=== PATIENT | female | born 1955 | race Two or more races ===

== ENCOUNTER 2019-07-31 14:27 | Inpatient (IN) | payer SELFPAY ==
[~2019-07-31] VITALS: Ht 157.5 cm; Wt 67.0 kg
[2019-07-31] MEDS ORDERED: SODIUM CHLORIDE 0.9% 1,000 ML IVB ONE (15:21)
[2019-07-31 16:28] LABS: Basophils # (auto) 0 10 ^3/uL (0-0.2); Basophils % (auto) 0.2 % (0.0-2.0); Eosinophils # (auto) 0 10 ^3/uL (0-0.8); Eosinophils % (auto) 0.2 % (0.0-7.0); Hematocrit 39.3 % (36.0-46.0); Hemoglobin 13.4 g/dL (12.2-16.2); Lymphocytes # (auto) 0.9 10 ^3/uL (0.4-5.4); Lymphocytes % (auto) 6.5 % (10.0-50.0); Mean Corpuscular Hemoglobin 30.2 pg (28.0-32.0); Mean Corpuscular Hgb Conc. 34.1 g/dL (32.0-36.0); Mean Corpuscular Volume 88.8 fL (80.0-100.0); Monocytes # (auto) 0.9 10 ^3/uL (0-1.3); Monocytes % (auto) 6.6 % (0.0-12.0); Neutrophils # (auto) 11.8 10 ^3/uL (1.6-8.6); Neutrophils % (auto) 86.5 % (37.0-80.0); Platelet Count (auto) 337 10^3/uL (140-450); Red Blood Cells 4.43 10^6/uL (4.0-5.20); Red Cell Distribution Width 13.1 % (11.8-14.3); White Blood Cell 13.7 10^3/uL (4.4-10.8)
[2019-07-31] MEDS ORDERED: AZITHROMYCIN 500MG/ 250ML 250 ML IV ONE (16:30)
[2019-07-31 16:47] LABS: Alanine Aminotransferase 8 U/L (13-56); Albumin 2.4 g/dL (3.4-5.0); Anion Gap 11 (5-15); Aspartate Aminotransferase 28 U/L (15-37); BUN/Creatinine Ratio 9.5; Blood Urea Nitrogen 6 mg/dL (7-18); Calcium 8.9 mg/dL (8.5-10.1); Carbon Dioxide 23 mmol/L (21-32); Chloride 95 mmol/L (98-107); GFR African American 123 mL/min; GFR Non-African American 101 mL/min; Glucose 100 mg/dL (74-106); Magnesium 2.2 mg/dL (1.6-2.6); Sodium 129 mmol/L (136-145)
[2019-07-31 16:52] LABS: Alkaline Phosphatase 114 U/L (45-117); Bilirubin, Total 0.5 mg/dL (0.2-1.0); Lactic Acid w/Reflex 2.5 mmol/L (0.4-2.0); Total Protein 7.2 g/dL (6.4-8.2)
[2019-07-31 17:08] LABS: INR 1.07 (0.9-1.15); Partial Thromboplastin Time 27.4 sec (23.64-32.05)
[2019-07-31] MEDS ORDERED: SODIUM CHLORIDE 0.9% 1,950 ML IV ONE (17:15)
[2019-07-31] MEDS ORDERED: POTASSIUM CHL 20MEQ/100ML 100 ML IV ONE (17:15)
[2019-07-31] MEDS ORDERED: FUROSEMIDE 100 MG/10ML VIAL IV ONE (17:15)
[2019-07-31] MEDS ORDERED: NITROGLYCERIN 0.4 MG SL TAB SL PRN (17:15)
[2019-07-31] MEDS ORDERED: VANCOMYCIN PER PHARMACY 0 MG IV SCH (17:15)
[2019-07-31] MEDS ORDERED: MORPHINE SULF INJ 2 MG/ML SYRINGE 1ML IV PRN (17:15)
[2019-07-31] MEDS ORDERED: CALCIUM CHL 100MG/ML 500 MG in D5W 5% 100 ML IV ONE (17:45)
[2019-07-31] MEDS ORDERED: VANCOMYCIN 1GM/250ML 250 ML IV SCH (19:00)
[2019-07-31 19:30] VITALS: BP 158/87
[2019-07-31] MEDS: HYDROCORTISONE SOD SUCC 100 MG/2ML INJ VIAL IV SCH ×2 (19:48→23:41)
[2019-07-31 20:00] VITALS: BP 158/87
[2019-07-31] MEDS ORDERED: AMLO5TAB15 PO (21:03)
[2019-07-31] MEDS ORDERED: ACLI1AER2 IN (21:03)
[2019-07-31] MEDS ORDERED: ASPI-404 PO (21:03)
[2019-07-31] MEDS ORDERED: DEXTROSE (50%) 50ML SYRG IV PRN (21:30)
[2019-07-31] MEDS: InsuLIN REG 1unit/0.01ml Soln (100units/ml) SC SCH (22:00)
[2019-07-31] MEDS: SOD CHL 0.9%/ KCL 40MEQ 1,000 ML IV SCH (22:12)
[2019-07-31] MEDS: MEROPENEM 1GM IVPB 100 ML IV SCH (22:24)
[2019-07-31] MEDS: FAMOTIDINE (10MG/ML) 2ML VL IV SCH (22:24)
[2019-07-31 22:35] VITALS: BP 150/93
[2019-07-31] MEDS: ACCU-CHEK COMFORT CURVE STRIP VI SCH (23:13)
[2019-07-31] MEDS ORDERED: PRAV20TA3 PO (23:18)
[2019-07-31 23:23] LABS: Urine Amorphous Crystal FEW /hpf (None Seen); Urine Bacteria FEW /hpf (None Seen); Urine Blood Negative /uL (Negative); Urine Specific Gravity 1.003 (1.001-1.035); Urine WBC 1 /hpf (0 - 5)
[2019-07-31] MEDS: MAGNESIUM SULFATE 1GM/100ML 100 ML IV ONE (23:41)
[2019-08-01] VITALS (10 sets, daily range): BP systolic 136–172; BP diastolic 76–101
[2019-08-01] MEDS ORDERED: VANCOMYCIN 1GM/250ML 250 ML IV SCH
[2019-08-01] MEDS: MAGNESIUM SULFATE 1GM/100ML 100 ML IV ONE (00:33)
[2019-08-01] MEDS: SOD CHL 0.9%/ KCL 40MEQ 1,000 ML IV SCH ×2 (01:35→10:05)
[2019-08-01] MEDS: FUROSEMIDE 100 MG/10ML VIAL IV SCH ×2 (06:00→17:30)
[2019-08-01 06:32] LABS: Basophils # (auto) 0.1 10 ^3/uL (0-0.2); Basophils % (auto) 0.6 % (0.0-2.0); Eosinophils # (auto) 0 10 ^3/uL (0-0.8); Hematocrit 34.8 % (36.0-46.0); Hemoglobin 11.7 g/dL (12.2-16.2); Lymphocytes # (auto) 0.6 10 ^3/uL (0.4-5.4); Lymphocytes % (auto) 5.1 % (10.0-50.0); Mean Corpuscular Hemoglobin 29.5 pg (28.0-32.0); Mean Corpuscular Hgb Conc. 33.6 g/dL (32.0-36.0); Mean Corpuscular Volume 87.9 fL (80.0-100.0); Monocytes # (auto) 0.3 10 ^3/uL (0-1.3); Monocytes % (auto) 2.5 % (0.0-12.0); Neutrophils # (auto) 11.3 10 ^3/uL (1.6-8.6); Neutrophils % (auto) 91.8 % (37.0-80.0); Platelet Count (auto) 322 10^3/uL (140-450); Red Blood Cells 3.96 10^6/uL (4.0-5.20); White Blood Cell 12.3 10^3/uL (4.4-10.8)
[2019-08-01 06:43] LABS: INR 1.07 (0.9-1.15); Partial Thromboplastin Time 26.8 sec (23.64-32.05)
[2019-08-01 06:47] LABS: Albumin 2.1 g/dL (3.4-5.0); Anion Gap 9 (5-15); Blood Urea Nitrogen 4 mg/dL (7-18); Calcium 8.1 mg/dL (8.5-10.1); Carbon Dioxide 23 mmol/L (21-32); Chloride 103 mmol/L (98-107); Glucose 128 mg/dL (74-106); Magnesium 2.3 mg/dL (1.6-2.6); Potassium 3.3 mmol/L (3.5-5.1); Sodium 135 mmol/L (136-145)
[2019-08-01 06:53] LABS: Ferritin 880.1 ng/mL (10-322)
[2019-08-01 06:54] LABS: Folate (Folic Acid) 5.68 ng/mL (5.38-24)
[2019-08-01] MEDS: ACCU-CHEK COMFORT CURVE STRIP VI SCH ×4 (06:54→22:54)
[2019-08-01] MEDS: HYDROCORTISONE SOD SUCC 100 MG/2ML INJ VIAL IV SCH (06:54)
[2019-08-01] MEDS: MEROPENEM 1GM IVPB 100 ML IV SCH (06:54)
[2019-08-01] MEDS: InsuLIN REG 1unit/0.01ml Soln (100units/ml) SC SCH ×4 (06:54→22:53)
[2019-08-01 06:55] LABS: Alanine Aminotransferase 7 U/L (13-56); Alkaline Phosphatase 104 U/L (45-117); Aspartate Aminotransferase 23 U/L (15-37); BUN/Creatinine Ratio 8.9; Bilirubin, Total 0.4 mg/dL (0.2-1.0); Cholesterol 186 mg/dL (< 200); Creatine Kinase IFCC 23 U/L (26-192); GFR African American 181 mL/min; GFR Non-African American 150 mL/min; HDL Cholesterol 25 mg/dL (40-59); LDL Cholesterol 125 mg/dL (< 100); Lactate Dehydrogenase 307 U/L (84-246); Phosphorus 2.1 mg/dL (2.5-4.90); Total Protein 6.6 g/dL (6.4-8.2); Triglycerides 159 mg/dL (< 150); Uric Acid 3.9 mg/dL (2.6-6.0)
[2019-08-01] MEDS: FAMOTIDINE (10MG/ML) 2ML VL IV SCH ×2 (10:05→22:54)
[2019-08-01] MEDS: amLODIPine BESYLATE 5 MG TAB PO SCH (10:06)
[2019-08-01] MEDS: ENOXAPARIN SOD 40 MG/0.4 ML SYRINGE SC SCH (10:07)
[2019-08-01] MEDS ORDERED: ASCORBIC ACID 500 MG TAB PO ONE (10:45)
[2019-08-01] MEDS ORDERED: POTASSIUM CHL 20 Meq TABLET PO ONE (10:45)
[2019-08-01] MEDS ORDERED: OSELTAMIVIR 75 MG CAP PO ONE (10:45)
[2019-08-01] MEDS ORDERED: AZITHROMYCIN 250 MG TAB PO ONE (10:45)
[2019-08-01] MEDS ORDERED: ZINC SULFATE 220mg CAP or TAB PO ONE (10:45)
[2019-08-01] MEDS ORDERED: cefTRIAXone 1GM/50ML D5W 50 ML IV ONE (10:45)
[2019-08-01] MEDS ORDERED: IBUP200C95 PO (11:52)
[2019-08-01] MEDS ORDERED: ALBUAER3 IN (11:56)
[2019-08-01] MEDS: IPRATROPIUM BROM 0.5 MG/2.5ML INH SOL NEB SCH (18:22)
[2019-08-01] MEDS: ALBUTEROL SULF 2.5 MG/0.5ML(0.5%) NEB SOLN NEB SCH (18:22)
[2019-08-01] MEDS: METOPROLOL TARTRATE 25 MG TAB PO SCH (22:00)
[2019-08-01] MEDS ORDERED: ATORVASTATIN 20 MG TAB PO SCH (22:00)
[2019-08-01] MEDS: OSELTAMIVIR 75 MG CAP PO SCH (22:54)
[2019-08-02] MEDS: ALBUTEROL SULF 2.5 MG/0.5ML(0.5%) NEB SOLN NEB SCH ×2 (00:29→07:07)
[2019-08-02] MEDS: IPRATROPIUM BROM 0.5 MG/2.5ML INH SOL NEB SCH ×2 (00:29→07:07)
[2019-08-02 04:11] LABS: RPR Non Reactive (Non Reactive)
[2019-08-02 05:32] VITALS: BP 135/79
[2019-08-02 06:28] LABS: BUN/Creatinine Ratio 6.5; Calcium 8.7 mg/dL (8.5-10.1)
[2019-08-02] MEDS: FUROSEMIDE 100 MG/10ML VIAL IV SCH (06:32)
[2019-08-02] MEDS: InsuLIN REG 1unit/0.01ml Soln (100units/ml) SC SCH ×2 (06:32→11:10)
[2019-08-02] MEDS: ACCU-CHEK COMFORT CURVE STRIP VI SCH ×2 (06:33→11:10)
[2019-08-02] MEDS ORDERED: ADENOSINE 56 MG in GIVE UN-DILUTED 0 ML IV STA (08:19)
[2019-08-02 08:51] VITALS: BP 112/77
[2019-08-02] MEDS ORDERED: cefTRIAXone 1GM/50ML D5W 50 ML IV SCH (09:00)
[2019-08-02] MEDS: FAMOTIDINE (10MG/ML) 2ML VL IV SCH (09:54)
[2019-08-02] MEDS ORDERED: AZITHROMYCIN 250 MG TAB PO SCH (10:00)
[2019-08-02] MEDS ORDERED: ZINC SULFATE 220mg CAP or TAB PO SCH (10:00)
[2019-08-02] MEDS: METOPROLOL TARTRATE 25 MG TAB PO SCH (10:00)
[2019-08-02] MEDS: amLODIPine BESYLATE 5 MG TAB PO SCH (10:00)
[2019-08-02] MEDS ORDERED: ASCORBIC ACID 500 MG TAB PO SCH (10:00)
[2019-08-02] MEDS ORDERED: POTASSIUM CHL 20 Meq TABLET PO ONE (10:45)
[2019-08-02] MEDS: ENOXAPARIN SOD 40 MG/0.4 ML SYRINGE SC SCH (11:03)
[2019-08-02] MEDS: OSELTAMIVIR 75 MG CAP PO SCH (11:03)
[2019-08-02 12:30] VITALS: BP 134/92
[2019-08-02 13:19] VITALS: BP 121/88
== END 2019-08-02 14:40 | disposition home or self-care (01) | DRG 871 ==
LOC: ER 14:27 → TELE-EAST 14:28 → TELE-CENTR 08-01 13:26
PROVIDERS: ADMIT Hospitalist; ATTEND Internal Medicine
DX: A41.9 Sepsis, unspecified organism (principal); J10.00 Influenza due to other identified influenza virus with unspecified type of pneumonia; E44.1 Mild protein-calorie malnutrition; E87.1 Hypo-osmolality and hyponatremia; J44.0 Chronic obstructive pulmonary disease with (acute) lower respiratory infection; J90 Pleural effusion, not elsewhere classified; E78.1 Pure hyperglyceridemia; Z20.828 Contact with and (suspected) exposure to other viral communicable diseases; E78.5 Hyperlipidemia, unspecified; E87.6 Hypokalemia; I10 Essential (primary) hypertension; Z72.0 Tobacco use; Z68.27 Body mass index [BMI] 27.0-27.9, adult; Z82.49 Family history of ischemic heart disease and other diseases of the circulatory system; Z86.73 Personal history of transient ischemic attack (TIA), and cerebral infarction without residual deficits; Z88.0 Allergy status to penicillin
CPT/HCPCS: 36415; 71045; 71250; 80048; 80053; 80061; 81001; 82533; 82550; 82553; 82607; 82728; 82746; 82962; 83036; 83605; 83615; 83735; 83930; 84100; 84443; 84484; 84550; 85025; 85045; 85379; 85610; 85730; 86141; 86592; 87040; 87070; 87804; 87880; 93306; 94640; G0378; J0153; J0696; J1815; J2185; J3480; J3490; J7060

== ENCOUNTER 2019-08-13 21:07 | Emergency (ER) | payer OTHER, SELFPAY ==
[~2019-08-13] VITALS: Ht 170.2 cm; Wt 63.5 kg
[~2019-08-13 21:07] MED LIST: ACLI1AER2 IN; ALBUAER3 IN; AMLO5TAB15 PO; ASPI-404 PO; IBUP200C95 PO; PRAV20TA3 PO
[2019-08-13 21:44] LABS: Eosinophils # (auto) 0 10 ^3/uL (0-0.8); Eosinophils % (auto) 0.1 % (0.0-7.0); Monocytes # (auto) 0.8 10 ^3/uL (0-1.3)
[2019-08-13 21:46] LABS: Basophils # (auto) 0.2 10 ^3/uL (0-0.2); Basophils % (auto) 1.4 % (0.0-2.0); Hematocrit 35.2 % (36.0-46.0); Hemoglobin 11.8 g/dL (12.2-16.2); Lymphocytes # (auto) 0.9 10 ^3/uL (0.4-5.4); Lymphocytes % (auto) 5.8 % (10.0-50.0); Mean Corpuscular Hemoglobin 29.4 pg (28.0-32.0); Mean Corpuscular Hgb Conc. 33.5 g/dL (32.0-36.0); Monocytes % (auto) 5.1 % (0.0-12.0); Neutrophils # (auto) 13.3 10 ^3/uL (1.6-8.6); Neutrophils % (auto) 87.6 % (37.0-80.0); Platelet Count (auto) 462 10^3/uL (140-450); Red Blood Cells 4.01 10^6/uL (4.0-5.20); Red Cell Distribution Width 13.8 % (11.8-14.3); White Blood Cell 15.2 10^3/uL (4.4-10.8)
[2019-08-13 22:00] LABS: Albumin 2.3 g/dL (3.4-5.0); BUN/Creatinine Ratio 11.3; Calcium 8.6 mg/dL (8.5-10.1); INR 1.01 (0.9-1.15); Partial Thromboplastin Time 26.3 sec (23.64-32.05); Potassium 3.4 mmol/L (3.5-5.1)
[2019-08-13 22:03] LABS: Bilirubin, Total 0.3 mg/dL (0.2-1.0); Total Protein 6.7 g/dL (6.4-8.2)
[2019-08-13] MEDS ORDERED: ONDANSETRON HCL 4 MG/2 ML VIAL IV ONE (23:30)
[2019-08-13] MEDS ORDERED: MORPHINE SULFATE 4 MG/ML SYR/VIAL IV ONE (23:30)
[2019-08-14 00:57] VITALS: BP 130/87
== END 2019-08-14 01:07 | disposition short-term general hospital (02) ==
LOC: ER 21:07 → EDBD 21:07 → ER 08-14 01:07
DX: I77.1 Stricture of artery (principal)
CPT/HCPCS: 36415; 80053; 85025; 85610; 85730; 93926; 96374; 96375; 99285; J2270; J2405